=== PATIENT | male | born 2000 | race Caucasian/White ===

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

== ENCOUNTER 2023-07-24 02:29 | Emergency (ER) | payer SELFPAY ==
[2023-07-24] MEDS ORDERED: Lidocaine 1% 10 ML MDV ONE (04:11)
[2023-07-24 05:04] VITALS: BP 135/87; PULSE 71
== END 2023-07-24 04:38 | disposition home or self-care (01) ==
LOC: JD.ED 02:29
DX: S61.217A Laceration without foreign body of left little finger without damage to nail, initial encounter (principal); J45.909 Unspecified asthma, uncomplicated; W23.0XXA Caught, crushed, jammed, or pinched between moving objects, initial encounter; Y92.89 Other specified places as the place of occurrence of the external cause; Y99.0 Civilian activity done for income or pay
CPT/HCPCS: 12001; 73140-26-F4; 73140-F4; 99283; J3490